=== PATIENT | female | born 1995 | race Caucasian/White ===

== ENCOUNTER 2019-04-06 07:51 | Inpatient (IN) ==
[2019-04-06] MEDS ORDERED: Metoclopramide 10 MG/2 ML VIAL IVP PRN (08:29)
[2019-04-06] MEDS ORDERED: Ondansetron 4 MG/2 ML VIAL IVP PRN ×2 (08:29→12:28)
[2019-04-06] MEDS ORDERED: Famotidine 20 MG/2 ML VIAL IVP PRN (08:29)
[2019-04-06] MEDS ORDERED: Naloxone 0.4 MG/ML INJ IVP PRN ×2 (08:29→12:28)
[2019-04-06] MEDS ORDERED: Lidocaine 1% 20 ML MDV INFILT PRN (08:29)
[2019-04-06 08:56] LABS: Basophils % 0.2 %; Eosinophils # 0.2 K/mcL (0.0-0.6); Eosinophils % 1.3 %; Hematocrit 36.4 % (35.3-44.9); Hemoglobin 12.6 g/dL (11.5-15.4); Immature Granulocytes % 0.4 % (0-4); Lymphocytes # 1.8 K/mcL (0.6-4.6); Lymphocytes % 14.6 %; Mean Corpuscular HGB Conc 34.6 g/dL (31.6-35.5); Mean Corpuscular Hemoglobin 28.8 pg (28.0-33.3); Mean Corpuscular Volume 83.3 fL (83.0-100.0); Mean Platelet Volume 10.9 fL (9.4-12.4); Monocytes # 0.8 K/mcL (0.0-1.3); Monocytes % 6.3 %; Neutrophils # 9.3 K/mcL (1.6-8.9); Platelet Count 232 K/mcL (140-400); Red Blood Count 4.37 M/mcL (3.82-4.97); Segmented Neutrophils % 77.2 %; White Blood Count 12.1 K/mcL (4.3-11.1)
[2019-04-06 09:46] LABS: Amphetamine Screen,Urine Negative ng/mL (Cutoff=1000); Barbiturate Screen,Urine Negative ng/mL (Cutoff=200); Benzodiazepines Screen,Urine Negative ng/mL (Cutoff=200); Cannabinoid Screen,Urine Negative ng/mL (Cutoff = 50); Cocaine Screen,Urine Negative ng/mL (Cutoff= 300); Opiate Screen,Urine Negative ng/mL (Cutoff=300); Phencyclidine Screen,Urine Negative ng/mL (Cutoff=25)
[2019-04-06] MEDS ORDERED: *HR* FentaNYL (PF) 100 MCG/2 ML VIAL EP ONE (12:28)
[2019-04-06] MEDS ORDERED: EPHEDrine 50 MG/ML VIAL IVP PRN (12:28)
[2019-04-06] MEDS ORDERED: Ropivacaine/PF 0.2% 20 ML VIAL EP ONE (12:28)
[2019-04-06] MEDS ORDERED: Epidural Premix (fent/bupiv) 110 ML EP SCH (12:30)
[2019-04-06] MEDS: Ringers Solution, Lactated 1,000 ML IVC SCH (12:34)
[2019-04-06] MEDS: *HR* Nalbuphine 10 MG/ML AMPUL IVP PRN ×2 (12:34→17:57)
[2019-04-06] MEDS ORDERED: Oxytocin 20 units/ LR 1000 mL 20 UNIT/1,000 ML BAG IVC SCH (15:30)
[2019-04-06] MEDS ORDERED: *HR* FentaNYL (PF) 100 MCG/2 ML VIAL ONE (20:12)
[2019-04-07] MEDS ORDERED: Acetaminophen 325 MG TABLET PO ONE (00:52)
[2019-04-07] MEDS ORDERED: Ampicillin 2 GM in 0.9 % Sodium Chloride Mini Bag 100 ML IVPB ONE (00:53)
[2019-04-07] MEDS ORDERED: Benzocaine/Menthol 56 GM AEROSOL SPRAY TP PRN (03:44)
[2019-04-07] MEDS ORDERED: Acetaminophen 325 MG TABLET PO PRN (03:44)
[2019-04-07] MEDS ORDERED: Lanolin 7 G OINT...G. TP PRN (03:44)
[2019-04-07] MEDS: Ibuprofen 600 MG TABLET PO PRN ×2 (03:53→20:34)
[2019-04-07] MEDS: Prenatal Vit/FA 1 EACH TABLET PO SCH (08:37)
[2019-04-08] MEDS: Prenatal Vit/FA 1 EACH TABLET PO SCH (08:02)
[2019-04-08 08:42] VITALS: BP 124/83
[2019-04-08] MEDS: Oxytocin 20 units/ LR 1000 mL 20 UNIT/1,000 ML BAG IVC SCH (09:01)
[2019-04-08] MEDS: Ringers Solution, Lactated 1,000 ML IVC SCH (09:02)
== END 2019-04-08 14:35 | disposition home or self-care (01) | DRG 560 ==
LOC: 1NENULAB 07:51 → 1NENUOBS 04-07 04:53
PROVIDERS: ADMIT Registered Nurse; ATTEND Registered Nurse

== ENCOUNTER 2022-01-18 10:49 | Observation (INO) | END 2022-01-18 12:00 | disposition home or self-care (01) | LOC: 1NENULAB | PROVIDERS: ADMIT Advanced Practice Midwife; ATTEND Advanced Practice Midwife ==

== ENCOUNTER → 2022-01-20 18:25 | Observation (INO) | END | disposition home or self-care (01) | LOC: 1NENULAB | PROVIDERS: ADMIT Advanced Practice Midwife; ATTEND Advanced Practice Midwife ==

== ENCOUNTER → 2022-01-26 20:39 | Observation (INO) ==
[2022-01-26 18:45] LABS: Basophils % 0.4 %; Eosinophils # 0.3 K/mcL (0.0-0.6); Eosinophils % 2.4 %; Hematocrit 36.3 % (35.3-44.9); Hemoglobin 12.2 g/dL (11.5-15.4); Immature Granulocytes % 0.5 % (0-4); Lymphocytes # 1.4 K/mcL (0.6-4.6); Lymphocytes % 12.4 %; Mean Corpuscular HGB Conc 33.6 g/dL (31.6-35.5); Mean Corpuscular Hemoglobin 29.2 pg (28.0-33.3); Mean Corpuscular Volume 86.8 fL (83.0-100.0); Mean Platelet Volume 10.2 fL (9.4-12.4); Monocytes # 0.5 K/mcL (0.0-1.3); Monocytes % 4.9 %; Neutrophils # 8.8 K/mcL (1.6-8.9); Platelet Count 225 K/mcL (140-400); Red Blood Count 4.18 M/mcL (3.82-4.97); Red Cell Distribution Width 12.1 % (11.5-14.5); Segmented Neutrophils % 79.4 %; White Blood Count 11.1 K/mcL (4.3-11.1)
[2022-01-26 19:00] LABS: Alanine Aminotransferase 9 Units/L (7-52); Aspartate Amino Transferase 15 Units/L (13-39); BUN/Creatinine Ratio 10 (6-26); Blood Urea Nitrogen 4 mg/dL (6-20); Lactate Dehydrogenase 133 Units/L (140-271); Uric Acid 5.5 mg/dL (2.3-7.6)
[2022-01-26 20:22] LABS: Protein/Creatinine Ratio,Urine 0.15 mg/mg (0.00-0.20)
== END | disposition home or self-care (01) ==
LOC: 1NENULAB
PROVIDERS: ADMIT Advanced Practice Midwife; ATTEND Advanced Practice Midwife